=== PATIENT | male | born 1960 | race Caucasian/White ===

== ENCOUNTER 2025-01-27 09:37 | Outpatient (AMB) | payer MEDICARE, SELFPAY ==
--- NOTE | 2025-01-27 09:59 | MHC.AMNUTRGE ---
VS Expanded 01/27/25 10:03 02/02/25 10:24 Height 5 ft 8 in 5 ft 8 in Weight 189 lb 6.033 oz 188 lb 14.4 oz BMI 28.8 28.7 Intake Visit Reasons: Impaired glucose tolerance Medication List - Last Reconciled 02/02/[address], LDN apixaban 5 mg PO BID atorvastatin (Lipitor) 40 mg PO BEDTIME empagliflozin (Jardiance) 10 mg PO DAILY oqxoycbtfyn-iubwuqnyd-dahsgdsy 200-62.5-25 mcg (Trelegy Ellipta) 1 inh inhalation DAILY gabapentin 100 mg PO BEDTIME bk-pny-bptsb-hjyzd-iod-[id number] 200-175-250 mcg ([place] Multivitamin For Men) tabs PO risperidone 2 mg PO BID sertraline 100 mg PO DAILY Nutrition Presentation Details: Pt presents for MNT for Pre DM Pt presents with home health care provider Pt participated minimally in the nutrition conversation in this appt Per referral notes, Pt has a hx of depression with psychiatric admissions Health care reports Pt has 2 meals/day , having a protein shake as breakfast and the next meal may be a skull grinder with steak and cheese and peppers or home made meal mashed potato/chicken or beef an [employer] staff reports he snacks on sweets , Pt admits to sneaker bars Today will review choosing nutrient dense snacks reducing on total carbs FIZ-Kegskye-Gf.Jeor Equation Height: 5 ft 8 in Weight: 188 lb 14.4 oz Resting Metabolic Rate: 1620.68 Calculated Activity Level: Sedentary Calories Needed to Maintain Weight: 1944.82 Diagnosis Nutrition problem #1: food nutri know defi As related to (etiology) #1: diagnosis As evidenced by (sign/symptom) #1: knowledge deficit of diet Assessment & Plan Assessment & Plan (1) Impaired fasting glucose: Code(s): R73.01 - Impaired fasting glucose Category: Medical Plan: current wt: 85.9 kg (01/27 ) est kcal needs as per MSJ: 2000 est protein needs as per 1 g/kg BW: 90 est fluid needs as per 30 ml/kg BW: 2600 Recommended fiber > 12 g /day and gradually increase up to 25-28 g /day or as tolerated Nutrition topics discussed : Reviewed (R), Pt verbalized understanding (V) , not applicable (N/A) NA< 2300 mg/d R, : Healthy Plate Method Concept: R, V, N/A: Carbohydrates: food sources of carbohydrates, relationship of carbohydrates to blood glucose, fatty liver GI health. Recommended total amount of carbohydrates per meals and snack. Differences between simple carbohydrates and complex carbohydrates R, : Lean protein foods including vegan , vegetarian sources of protein. Benefits of protein (including but not limited to healing, nutritional value , benefits in weight loss, glucose control R, V, N/A: Fats : Source of fats, benefits of fats. Difference between saturated and unsaturated fats. Saturated fats and its contribution to inflammation R, V, N/A: Fiber: food sources and role of fiber in the diet (including but not limited to its role as a prebiotic, benefits in constipation, role in IBS , role in glucose control and cholesterol level) R, : Hydration: role of hydration and prevention of dehydration or over hydration. Foods and water content. R, V, N/A: Vitamins and Minerals in foods and supplements R, V, N/A: Interpreting food labels, including serving size, macronutrients, vitamins, minerals, allergens, ingredient list , % daily value Patient Instructions: Choose snacks with less sugar and with protein ([place] prot bar vs sneaker bar as example- see list of options to choose from) Have 2 meals a day as established and include a meal consisting of salad and at least 4 oz of lean protein ( see green/yellow/red education sheet for high fiber /protein meal options to choose from next visit : will discuss carbs in more detailed with Pt and health care provider Coding Level of Care Code Nutr Indiv Intake (25399) Diagnoses Impaired fasting glucose R73.01 Time Spent (min) 30
[2025-01-27 10:03] VITALS: BMI 28.8
--- OUTSIDE RECORDS SUMMARY | 2025-01-27 11:14 | XMS_ITS | Clinical Summary ---
Author Organization 175 [facility] Address [address] [place] [address] Phone Care Team Providers Care Operators Teacher Name Role Phone Italia Jerez MD Primary Care Prov ider Allergies Active Allergy Reactions Criticality Noted Date Comments Haloperidol Anaphylaxis High 07/11/2016 Topiramate 07/11/2016 Medications multivitamin (MULTIPLE VITAMINS ORAL) TAKE 1 TABLET BY MOUTH ONCE DAILY 4 Active hydrocortisone 1 % topical cream Apply topically to skin twice a day for 2 weeks for rash legs 4 Active gabapentin (NEURONTIN) 100 mg capsule Take 1 capsule (100 mg total) by mouth 2 (two) times a day. 2 Active hydrOXYzine HCL (ATARAX) 10 mg tablet Take 1 tablet (10 mg total) by mouth 1 (one) time each day. 1 Active risperiDONE (RisperDAL) 2 mg tablet Take 1 Tab by mouth 2 times daily. 1 Active sertraline (ZOLOFT) 100 mg tablet Take 2 tablets (200 mg total) by mouth 1 (one) time each day. Active benztropine (COGENTIN) 0.5 mg tablet Take 0.5 mg by mouth 2 times daily. Active Trelegy Ellipta 200-62.5-25 mcg inhaler INHALE 1 PUFF BY MOUTH INTO THE lungs ONCE DAILY 60 each 11 5 Active albuterol 2.5 mg /3 mL (0.083 %) nebulizer solutionIndication s:Emphysema, unspecified ([facility] V24, [facility] V28),Nicotine dependence, cigarettes, uncomplicated INHALE THE CONTENT OF 1 VIAL (3mls) VIA NEBULIZER EVERY 4 HOURS NEEDED FOR SHORTNESS OF BREATH OR FOR WHEEZING 300 mL 1 5 Active atorvastatin (LIPITOR) 40 mg tablet Take 1 tablet (40 mg total) by mouth 1 (one) time each day. 30 tablet 5 5 Active apixaban (Eliquis) 5 mg tablet Take 1 tablet (5 mg total) by mouth 2 (two) times a day. 60 tablet 5 5 04/23/20 25 Active bb-gvp-[id number]-K1-ly copen-lutein (Men 50 Plus Multivitamin) 016-14-913-300 mcg tablet Take 1 tablet by mouth 1 (one) time each day. 30 tablet 5 5 Active empagliflozin (JARDIANCE) 10 mg tabletIndications: HFrEF (heart failure with reduced ejection fraction) ([facility] V24, [facility] V28) Take 1 tablet (10 mg total) by mouth 1 (one) time each day in the morning. 60 tablet 2 5 Active CertaVite Senior tablet Take 1 tablet by mouth 1 (one) time each day. 5 Active Active Problems Problem Noted Date Diagnosed Date Coronary artery disease due to lipid rich plaque 10/25/2024 Assessment & Plan (11/01/2024 12:06 PM EDT): Patient with history of nonobstructive CAD. He continues on statin and Eliquis. He denies any chest discomfort. He has a history of COPD and dyspnea on exertion at baseline. His last LDL cholesterol was at 48 showing excellent control. I have reviewed with the patient the importance of a heart healthy lifestyle which includes eating a low-fat low-salt diet, getting regular exercise, maintaining a healthy weight, not smoking, and following up with routine medical care. Anticoagulated 10/25/2024 Claudication ([facility] V24) 09/08/2024 Assessment & Plan (09/08/2024 10:19 AM EDT): The patient has symptoms of claudication. His symptoms of claudication occur with only minimal activity. Will order lower extremity arterial duplex to rule out any significant PAD. Orders: Vascular US duplex lower extremity arteries bilateral with FRANCIS; Future HFrEF (heart failure with re duced ejection fraction) (CMS/HCC V24, CMS/HCC V28) 09/08/2024 Assessment & Plan (11/01/2024 12:06 PM EDT): Patient has a history of HFrEF, his most recent echocardiogram was completed in June 2024 showing an ejection fraction of 40 to 45% with mild global hypokinesis of the left ventricle. He underwent an angiogram which revealed nonobstructive CAD. We will further investigate causes of nonischemic cardiomyopathy with a cardiac MRI. As far as GDMT, will initiate an SGLT2 inhibitor today with Jardiance 10 mg daily. Patient was given samples and education. BMP in 1 week. With his soft blood pressure, unsure if he will be able to tolerate Entresto in the future. Will reevaluate in several weeks. He is euvolemic on exam. Orders: empagliflozin (JARDIANCE) 10 mg tablet; Take 1 tablet (10 mg total) by mouth 1 (one) time each day in the morning. Basic metabolic panel; Future MR Cardiac Morphology and Function wo and w Contrast; Future Assessment & Plan (09/08/2024 10:19 AM EDT): the patient has a history of heart failure with reduced ejection fraction. On a recent echocardiogram his LVEF was noted to be around 40%. He has global hypokinesis of the left ventricle more pronounced in the basal segments. There was no evidence of any significant valvular disease. The patient does have multiple risk factors for CAD including a history of smoking and hyperlipidemia. As such, I am concerned about the possibility of underlying coronary artery disease. The patient denies any symptoms of chest pain but he does refer symptoms of significant shortness of breath with minimal activity. Certainly, there could be a component of COPD to his symptoms of shortness of breath. During today's visit, I had an extensive conversation with the patient and his sister regarding his abnormal echocardiogram. Specifically, we discussed that his LV function is reduced. Also, we discussed the fact that we need to rule out the possibility of underlying CAD given his cardiomyopathy and risk factors for CAD. We discussed the possibility of a left heart catheterization. The patient and his sister are in agreement to proceed. Will schedule the patient for a left heart catheterization to rule out ischemic cardiomyopathy as a cause of his cardiomyopathy. On the other hand, we will order laboratory testing and will include a comprehensive metabolic panel, CBC, coagulation profile, and TSH level. Depending on the results, then we will start the patient on GDMT for his cardiomyopathy. Finally, if the left heart catheterization does not show any significant coronary artery disease as a cause of his cardiomyopathy, then we will proceed with further testing with a cardiac MRI. Other cardiomyopathies (CMS/HCC V24, CMS/HCC V28 ) 09/06/2024 Assessment & Plan (09/08/2024 10:19 AM EDT): the patient has a history of heart failure with reduced ejection fraction. On a recent echocardiogram his LVEF was noted to be around 40%. He has global hypokinesis of the left ventricle more pronounced in the basal segments. There was no evidence of any significant valvular disease. The patient does have multiple risk factors for CAD including a history of smoking and hyperlipidemia. As such, I am concerned about the possibility of underlying coronary artery disease. The patient denies any symptoms of chest pain but he does refer symptoms of significant shortness of breath with minimal activity. Certainly, there could be a component of COPD to his symptoms of shortness of breath. During today's visit, I had an extensive conversation with the patient and his sister regarding his abnormal echocardiogram. Specifically, we discussed that his LV function is reduced. Also, we discussed the fact that we need to rule out the possibility of underlying CAD given his cardiomyopathy and risk factors for CAD. We discussed the possibility of a left heart catheterization. The patient and his sister are in agreement to proceed. Will schedule the patient for a left heart catheterization to rule out ischemic cardiomyopathy as a cause of his cardiomyopathy. On the other hand, we will order laboratory testing and will include a comprehensive metabolic panel, CBC, coagulation profile, and TSH level. Depending on the results, then we will start the patient on GDMT for his cardiomyopathy. Finally, if the left heart catheterization does not show any significant coronary artery disease as a cause of his cardiomyopathy, then we will proceed with further testing with a cardiac MRI. Orders: Comprehensive metabolic panel; Future CBC and differential; Future Lipid panel with reflex to direct LDL; Future Thyroid stimulating hormone; Future Prothrombin time with INR; Future Syncope and collapse 09/06/2024 Assessment & Plan (11/01/2024 12:06 PM EDT): He has a history of syncopal episodes as outlined above. He has had no recent syncopal episodes or feelings of presyncope. He completed a 30-day monitor and pending it to review. He will be notified of the results once they are available. Assessment & Plan (09/08/2024 10:19 AM EDT): The patient has had 2 episodes of syncope. The episodes occurred while the patient was not eating or drinking enough during his stay. The last episode of syncope occurred 3 months ago. Since then, he has not had any further episodes of syncope. Blood pressures today in our office were noted to be appropriate. The patient recently underwent an echocardiogram that showed a mild LV systolic dysfunction. Given his underlying structural heart disease, we need to rule out the possibility of an arrhythmic component to his episodes of syncope. Therefore, we will schedule the patient for 30-day ambulatory environmental monitoring specialist. 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 He will continue on these therapies as directed. Assessment & Plan (09/08/2024 10:19 AM EDT): The patient has a history of a left lower extremity DVT with PE which was diagnosed in May 2018. He apparently was on anticoagulation therapy for several months and after that the anticoagulation therapy was discontinued. Then, the patient had another episode of DVT/pulmonary embolism in January 2020. Anticoagulation therapy was then restarted. The patient has not had any further episodes of DVT/PE on chronic anticoagulation therapy with Eliquis. The patient will be scheduled for a left heart catheterization which will require holding his Eliquis for 2 days prior to the left heart catheterization. Will review this with the patient's binding folder machine who is following the patient's pulmonary embolism and COPD. Impaired glucose tolerance 04/22/2023 Moderate COPD (chronic obstr uctive pulmonary disease) ([facility] V24, [facility] V28) 11/13/2016 Nicotine dependence, uncomplicated 11/13/2016 Pulmonary nodule 11/13/2016 Intellectual disability 09/04/2015 Mononeuropathy 09/04/2015 Alcohol abuse 06/06/2015 Depression 08/29/2014 Overview (02/25/2024): Therapist weekly:Belinda Munoz Clinician from [facility] inpatient psychiatric admits Impaired fasting glucose 08/29/2014 Mixed hyperlipidemia 08/29/2014 Overview (02/25/2024): ASCVD 12.9% 03/25. Started atorvastatin 40 mg. Assessment & Plan (09/08/2024 10:19 AM EDT): The patient has a history of hyperlipidemia. The patient is currently on atorvastatin 40 mg orally daily. We will order a new lipid panel to evaluate the patient's current lipid control and determine if any adjustment are needed in the lipid lowering therapy. PTSD (post-traumatic stress disorder) 08/29/2014 Tubular adenoma of colon 08/29/2014 Overview (02/25/2024): 2012 Resolved Problems Problem Noted Date Diagnosed Date Resolved Date School failure 08/29/2014 09/08/2024 Encounters Date Type Department Care Team Description 01/06/2025 Telephone [facility] Cardiology [facility] [address] [place] [address] Nancy Duvall NP 12/29/2024 9:15 AM EDT Office Visit Orthopedic Surgery - [place] [address] [place] [address] [address] [place] [address] Ariel Santos, DPM Ingrowing nail (Primary Dx); Dermatophytosis of nail; Dermatitis 12/14/2024 Telephone [facility] [address] [place] [address] Abhishek FidencioJOHNNIE brady 12/13/2024 1:05 PM EDT Lab Draw Station - [place] [address] [place] [address] HFrEF (heart failure with reduced ejection fraction) (CMS/HCC V24, CMS/HCC V28) 12/09/2024 2:10 PM EDT Office Visit [facility] Cardiology [facility] [address] [place] [id number] Nancy Duvall NP HFrEF (heart failure with reduced ejection fraction) (CMS/HCC V24, CMS/HCC V28) (Primary Dx) 12/02/2024 Telephone [facility] [address] [place] [address] Julio Kimble MD 12/01/2024 3:00 PM EDT Ancillary Procedure [facility] [address] [place] [address] Claudication ([facility]/HCC V24) 11/22/2024 Telephone Adult Medicine - [place] [address] [place] [address] Italia Jerez MD 11/15/2024 Telephone [facility] [address] [place] [address] Nancy Duvall NP 11/03/2024 Telephone Adult Medicine - [place] [address] [place] [address] Italia Jerez MD 11/01/2024 8:10 AM EDT Office Visit [facility] [address] [place] [address] Nancy Duvall NP HFrEF (heart failure with reduced ejection fraction) (CMS/HCC V24, CMS/HCC V28) (Primary Dx); Coronary artery disease due to lipid rich plaque; Pulmonary embolism, unspecified chronicity, unspecified pulmonary embolism type, unspecified whether acute cor pulmonale present (CMS/HCC V24, CMS/HCC V28); Syncope and collapse from Last 3 Months Immunizations Name Administration Dates Next Due Influenza Quadravalent, MDCK , 0.5ml, preservative free (Flucelvax) 6mo and older 01/12/2023,03/26/2022,03/20/2021,02/15 Influenza Quadrivalent, 0.5m l, preservative free (Fluarix; FluLaval; Fluzone) ages 6mo and older (Afluria) 3yo and older 05/17/2015 Influenza trivalent, 0.5mL, preservative free (Fluarix; FluLaval; Fluzone) ages 6mo and older (Afluria) 3 years and older 03/21/2024,05/14/2018,02/04/2017,03/01 Influenza trivalent, with pr eservative (Fluzone; Afluria) 6mo and older 05/14/2018,03/01/2016 Influenza, Unspecified 02/04/2017,05/17/2015 Moderna SARS-CoV-2 COVID-19, mRNA, LNP-S, preservative free 03/06/2021 Pneumococcal polysaccharide 23 valent (Pneumovax 23) 2yo and older 10/09/2010 RSV, bivalent, protein subun it RSVpreF, 0.5mL, Preservative Free (Arexvy) 60yo and older 01/12/2023 Tdap Tetanus diptheria acell ular pertussis (Boostrix; Adacel) 7yo and older 02/22/2020,10/06/2009 Surgical History Surgery Date Site/Laterality Comments CATARACT EXTRACTION 05/05/2012 Bilateral PROCEDURE: HISTORICAL CATARACT REMOVAL COLONOSCOPY 05/05/2012 PROCEDURE: HISTORICAL COLONOSCOPY Medical History Medical History Date Comments Depression 08/29/2014 DX:Depression Impaired fasting glucose 08/29/2014 DX:Impa ired fasting glucose PTSD (post-traumatic stress disorder) 08/29/2014 DX:PTSD (post-traumatic stress disorder) COPD (chronic obstructive pu lmonary disease) ([facility] [place], [facility] [place]) 08/29/2014 DX:COPD (chronic o bstructive pulmonary disease) ([facility]) Tubular adenoma of colon 08/29/2014 DX:Tubu lar adenoma of colon; COMMENT: 2012 School failure 08/29/2014 DX:School failur e Deep vein thrombosis (DVT) o f proximal vein of both lower extremities (CMS/HCC V24, CMS/HCC V28) 05/26/2018 DX:Deep vein thrombosis (DVT ) of proximal vein of both lower extremities ([facility]); COMMENT: left Other pulmonary embolism wit hout acute cor pulmonale (CMS/HCC V24, CMS/HCC V28) 06/10/2018 DX:Other pulmonary embolism without acute cor pulmonale (HCC) COVID-19 virus infection 04/30/2021 DX:COVI D-19 virus infection; COMMENT: Tested + 04/30/2021 sore throat and cough Family History Medical History Relation Name Comments No Known Problems Brother No Known Problems Father COPD Mother No Known Problems Sister 1 No Known Problems Sister 2 Blindness Neg Hx Cataracts Neg Hx Glaucoma Neg Hx Macular degeneration Neg Hx Strabismus Neg Hx Relation Name Status Comments Brother Alive Father Maternal Grandfather Maternal Grandmother Mother Paternal Grandfather Paternal Grandmother Sister 1 Alive Sister 2 Alive Social History Tobacco Use Types Packs/Day Years Used Date Smoking Tobacco: Every Day Cigarettes Smokeless Tobacco: Never Tobacco Cessation:Ready to Q uit: Not Asked; Counseling Given: Not Answered Comments:Smoking 1 pk daily Alcohol Use Standard Drinks/Week Comments Not Currently 0 (1 standard drink = 0.6 oz pur e alcohol) Sex and Gender Information Value Date Recorded Sex Assigned at Not on file Legal Sex Male 10:17 AM EST Gender Identity Not on file Sexual Orientation Not on file Obstetrics History Last Filed Vital Signs Vital Sign Reading Time Taken Comments Blood Pressure 102/66 12/09/2024 2:23 PM EDT Pulse 86 12/09/2024 2:23 PM EDT Temperature 36.7 C (98 F) 10/25/2024 10:31 AM EDT Respiratory Rate 20 08/30/2024 9:04 AM EDT Oxygen Saturation 96% 12/09/2024 2:23 PM EDT Inhaled Oxygen Concentration - - Weight 87.5 kg (193 lb) 12/09/2024 2:23 PM EDT Height 172.7 cm (5' 8 ) 11/01/2024 8:13 AM EDT Body Mass Index 29.35 11/01/2024 8:13 AM EDT Plan of Treatment Upcoming Encounters Date Type Department Care Team (Late st Contact Info) Description 02/01/2025 11:30 AM EDT Office Visit Adult Medicine - [place] [address] [place] [address] Yordan Grant PA [address] [place] [address] 02/21/2025 3:45 PM EDT Appointment [facility] CT Scan [address] [place] [phone] 03/01/2025 8:45 AM EDT Office Visit Pulmonology - [place] [facility] [address] [place] [phone] Isreal Delatorre MD 175 [facility] [address] [place] [address] 03/29/2025 8:30 AM EST Office Visit Orthopedic Surgery - [place] [address] [facility] [address] [place] [phone] Ariel Santos, DPM [address] [phone] Health Maintenance Due Date Last Done Comments Hepatitis A Vaccines (1 of 2 - Risk 2-dose series) 10/30/1978 Zoster Vaccines (1 of 2) 10/30/2009 Pneumococcal Vaccine: 50+ Years (2 of 2 - PCV) 10/10/2011 10/09/2010 Abdominal Aortic Aneurysm (AAA) Screen 04/13/2022 Colorectal Cancer Screening: Stool Based Tests (FOBT/FIT) 04/13/2022 Medicare Annual Wellness Visit 04/13/2022 Social Influencers of Health Screening 04/13/2022 Depression Screening 05/05/2024 Falls Risk Assessment 10/30/2024 COVID-19 Vaccine ( season) 2025 03/21/2024, 04/08/2022, 03/06/2021, Additional history exists Influenza Vaccine (#1) 2025 4, 01/12/2023, 03/26/2022, Additional history exists Lung Cancer Screening (Low Dose CT) 02/22/2025 02/23/2024, 02/21/2024, 02/25/2023, Additional history exists Hypertension/CHF/CAD Annual BMP Blood Test 12/13/2025 12/13/2024, 09/09/2024, 02/17/2024, Additional history exists Cholesterol Screening (Lipid Panel) 09/09/2029 09/09/2024, 04/22/2023 DTaP,Tdap,and Td Vaccines (3 - Td or Tdap) 02/21/2030 02/22/2020, 10/06/2009 Hepatitis C Screening Completed 09/15/2014 Colorectal Cancer Screening: Colonoscopy Discontinued 07/10/2021 RSV Immunization Adult Patients Completed 01/12/2023 HIB Vaccines Aged Out No longer eligi ble based on patient's age to complete this topic HPV Vaccines Aged Out No longer eligi ble based on patient's age to complete this topic Hepatitis B Vaccines Aged Out No long er eligible based on patient's age to complete this topic IPV Vaccines Aged Out No longer eligi ble based on patient's age to complete this topic MMR Vaccines Aged Out No longer eligi ble based on patient's age to complete this topic Meningococcal ACWY Vaccine Aged Out N o longer eligible based on patient's age to complete this topic Meningococcal B Vaccine Aged Out No l onger eligible based on patient's age to complete this topic RSV Immunization Patients Under 20 months Aged Out No longer eligible based on patient's age to complete this topic Varicella Vaccines Aged Out No longer eligible based on patient's age to complete this topic Procedures Procedure Name Priority Date/Time Associated Diagnosis Comments BASIC METABOLIC PANEL Routine 12/13/2024 1:04 PM EDT HFrEF (heart failure with reduced ejection fraction) (CMS/HCC V24, CMS/HCC V28) VAS US DUPLEX LOWER EXT ARTERIES BILAT WITH FRANCIS Routine 12/01/2024 3:42 PM EDT Claudication (CMS/HCC V24) LIPID PANEL WITH REFLEX TO DIRECT LDL Routine 09/09/2024 12:20 PM EDT Other cardiomyopathies (CMS/HCC V24, CMS/HCC V28) CT LUNG SCREENING LOW DOSE Routine 02/23/2024 11:35 AM EDT Encounter for screening for malignant neoplasm of respiratory organs COLONOSCOPY Routine 07/10/2021 HEPATITIS C SCREENING Routine 09/15/2014 from Last 3 Months or Most Recently Relevant to Health Maintenance Results * Basic metabolic panel (12/13/2024 1:04 PM EDT) [facility] Sodium 138 133 - 145 mmol/L LAB CHEMISTRY METHOD 12/13/2024 3:22 PM [facility] Potassium 4.3 3.5 - 5.5 mmol/L LAB CHEMISTRY METHOD 12/13/2024 3:22 PM [facility] Chloride 107 96 - 110 mmol/L LAB CHEMISTRY METHOD 12/13/2024 3:22 PM [facility] CO2 25 21 - 32 mmol/L LAB CHEMISTRY METHOD 12/13/2024 3:22 PM [facility] Anion Gap 6 3 - 11 LAB CHEMISTRY METHOD 12/13/2024 3:22 PM [facility] Glucose 79 70 - 100 mg/dL LAB CHEMISTRY METHOD 12/13/2024 3:22 PM [facility] BUN 7 5 - 25 mg/dL LAB CHEMISTRY METHOD 12/13/2024 3:22 PM [facility] Creatinine 0.79 0.70 - 1.30 mg/dL LAB CHEMISTRY METHOD 12/13/2024 3:22 PM [facility] eGFR 99 >=60 mL/min/1. 73m2 LAB CHEMISTRY METHOD 12/13/2024 3:22 PM [facility] Comment:Calculation based on the Chronic Kidney Disease Epidemiology Collaboration (CKD-EPI) equation refit without adjustment for race. BUN/Creatinine Ratio 8.9 LAB CHEMISTRY METHOD 12/13/2024 3:22 PM EDT [facility] Calcium 9.4 8.5 - 10.5 mg/dL LAB CHEMISTRY METHOD 12/13/2024 3:22 PM EDT [facility] Blood Venous blood specimen / Unknown Venipuncture / Unknown 12/13/2024 1:04 PM EDT 12/13/2024 1:04 PM EDT us Nancy Duvall STORE MANAGER LAB BLOOD ORDERABLES Final Res ult [facility] ([facility]) [facility] [address] [place] [address], [place] [phone] * Vascular US duplex lower extremity arteries bilateral with FRANCIS (12/01/2024 3:42 PM EDT) Left Dist External Iliac PSV 146 cm/s CV [facility]AS LAB Left Prox External Iliac PSV 109 cm/s CV VAS LAB Left AT dist sys PSV 43 cm/s CV VAS LAB Left AT mid sys PSV 50 cm/s CV VAS LAB Left AT prox sys PSV 51 cm/s CV VAS LAB Left CLAY MACHINE OPERATOR prox sys PSV 85 cm/s CV VAS LAB Left mid peroneal sys PSV 45 cm/s CV VAS LAB Left popliteal dist sys PSV 61 cm/s CV VAS LAB Left popliteal prox sys PSV 62 cm/s CV VAS LAB Left PT dist sys PSV 78 cm/s CV VAS LAB Left PT mid sys PSV 84 cm/s CV VAS LAB Left PT prox sys PSV 52 cm/s CV VAS LAB Left super femoral dist sys PSV 87 cm/s CV VAS LAB Left super femoral mid sys PSV 117 cm/s CV VAS LAB Left super femoral prox sys PSV 116 cm/s CV VAS LAB Right Dist External Iliac PSV 119 cm/s CV VAS LAB Right Prox External Iliac PSV 108 cm/s CV VAS LAB Right AT dist sys PSV 63 cm/s CV VAS LAB Right AT mid sys PSV 86 cm/s CV VAS LAB Right AT prox sys PSV 59 cm/s CV VAS LAB Right CLAY MACHINE OPERATOR prox sys PSV 89 cm/s CV VAS LAB Right mid peroneal sys PSV 37 cm/s CV VAS LAB Right popliteal dist sys PSV 72 cm/s CV VAS LAB Right popliteal prox sys PSV 53 cm/s CV VAS LAB Right PT dist sys PSV 63 cm/s CV VAS LAB Right PT mid sys PSV 63 cm/s CV VAS LAB Right PT prox sys PSV 76 cm/s CV VAS LAB Right super femoral dist sys PSV 86 cm/s CV VAS LAB Right super femoral mid sys PSV 122 cm/s CV VAS LAB Right super femoral prox sys PSV 105 cm/s CV VAS LAB Right profunda sys PSV 86 cm/s CV VAS LAB Left profunda sys PSV 114 cm/s CV VAS LAB Right arm BP 110 mmHg CV VAS LAB Left arm BP 100 mmHg [facility] Right posterior tibial 141 mmHg [facility] Right Dorsalis Pedis 145 mmHg [facility] Right FRANCIS 1.32 [facility] Left posterior tibial 141 mmHg [facility] Left Dorsalis Pedis 125 mmHg [facility] Left FRANCIS 1.28 [facility] Anatomical Region Laterality Modality Vascular, Abdomen Ultrasound Narrative 12/29/2024 6:13 PM EDT Right le. Normal ankle-brachial index (1.32). 2. Diffuse atherosclerosis was noted in the right lower extremity arterial system. 3. No significant stenosis noted in the right lower extremity arterial system. Left le. Normal ankle-brachial index (1.28). 2. Diffuse atherosclerosis was noted in the left lower extremity arterial system. 3. No significant stenosis noted in the left lower extremity arterial system. Right Lower Arterial Duplex The distal external iliac artery has triphasic flow. The common femoral artery has triphasic flow. The profunda femoris artery has triphasic flow. The superficial femoral artery has triphasic flow. The popliteal artery has triphasic flow. The anterior tibial artery has triphasic flow. The posterior tibial artery has triphasic flow. The mid peroneal artery has triphasic flow. Left Lower Arterial Duplex The distal external iliac artery has triphasic flow. The common femoral artery has triphasic flow. The profunda femoris artery has triphasic flow. The superficial femoral artery has triphasic flow. The popliteal artery has triphasic flow. The anterior tibial artery has triphasic flow. The posterior tibial artery has triphasic flow. The mid peroneal artery has triphasic flow. Slicing Machine Feeder Details A wallace scale, color and doppler analysis ultrasound was performed. During the study longitudinal and transverse views were obtained. Continuous wave doppler, pulsed wave doppler and pulsed volume recording (PVR) was performed. Julio Kimble MD CV VASCULAR PROCEDURES Final Result * (ABNORMAL) Lipid panel with reflex to direct LDL (09/09/2024 12:20 PM EDT) [facility] Signature Cholesterol 130 0 - 200 mg/dL LAB CHEMISTRY METHOD 09/09/2024 3:22 PM EDT [facility] Triglycerides 175(H) 0 - 150 mg/dL LAB CHEMISTRY METHOD 09/09/2024 3:22 PM EDT [facility] HDL 47 >=40 mg/dL LAB CHEMISTRY METHOD 09/09/2024 3:22 PM EDT [facility] LDL Calculated 48 0 - 100 mg/dL LAB CHEMISTRY METHOD 09/09/2024 3:22 PM EDT [facility] VLDL Cholesterol Capo 35 mg/dL LAB CHEMISTRY METHOD 09/09/2024 3:22 PM EDT [facility] Non HDL Chol. (LDL+VLDL) 83 <145 mg/dL LAB CHEMISTRY METHOD 09/09/2024 3:22 PM EDT [facility] Chol/HDL Ratio 2.8 0.0 - 4.4 LAB CHEMISTRY METHOD 09/09/2024 3:22 PM T [facility] Blood Venous blood specimen / Unknown Venipuncture / Unknown 09/09/2024 12:20 PM EDT 09/09/2024 12:20 PM EDT Julio Kimble MD LAB BLOOD ORDERABLES F inal Result [facility] [address] [place] [address], [place] [phone] * CT LUNG SCREENING LOW DOSE (02/23/2024 11:35 AM EDT) Anatomical Region Laterality Modality Computed Tomogra phy 02/21/2024 9:55 AM EDT Narrative 02/23/2024 11:[address] [facility] Diagnostic Imaging Department [address] [place] [id number] Patient: JAGDISH ROBB /Age/Sex: 1960 - 63 - M Unit#: [id number] Location/Status: SPDICATLS/REG CLI Mnemonic/Ordering Site: [facility] Ordering Physician: BELKYS COBIAN MD CT Lung Screening Low Dose - 02/21/24 - 1006 Report Status:Signed PROCEDURE: Chest CT INDICATION: Lung cancer screening, current smoker, 47 pack year smoking history TECHNIQUE: Chest CT without contrast. Multi planar reformats were created and interpreted. The examination was performed utilizing dose reduction techniques. Total DLP 114 COMPARISON: 02/15/2023 FINDINGS: LUNGS/PLEURA: Central airways are patent. Emphysema with chronic bronchitis and regions of mucous plugging. 4 mm nodule in the right upper lobe is stable compared to prior. Smaller nodules along the right minor fissure are stable compared to prior. Right lower lobe calcified granuloma is unchanged. No new or suspicious pulmonary nodules. No pleural effusion or pneumothorax. MEDIASTINUM: Thyroid gland is unremarkable. No mediastinal or hilar lymphadenopathy. Cardiac chambers are normal in size. No pericardial effusion. Moderate coronary artery calcifications. Esophagus is normal. CHEST WALL: No axillary lymphadenopathy or superficial hematoma. UPPER ABDOMEN:Hepatic steatosis. Porcelain gallbladder BONES: No acute fracture. Old healed rib fracture deformities bilaterally. Scattered degenerative changes seen throughout the bones. IMPRESSION: No new or suspicious pulmonary nodules. Lung RADS 2-benign. Recommend continued screening with low-dose chest CT in 12 months. Dictating Physician: MARIN WEBSTER MD Electronically Signed by: MARIN WEBSTER MD Dic Date/Time: 02/23/24 1040 Sign date/Time: 02/23/24 1135 Procedure Note Marin Webster MD - 03/02/2024 [facility] Diagnostic Imaging Department [address] [place] [address] Patient: JAGDISH ROBB D.O.B./Age/Sex: 1960 - 63 - M Unit#: [id number] Location/Status: [facility] Mnemonic/Ordering Site: [facility] Ordering Physician: BELKYS COBIAN MD CT Lung Screening Low Dose - 02/21/24 - 1006 Report Status:Signed PROCEDURE: Chest CT INDICATION: Lung cancer screening, current smoker, 47 pack year smokinghistory TECHNIQUE: Chest CT without contrast. Multi planar reformats were createdand interpreted. The examination was performed utilizing dose reductiontechniques. Total DLP 114 COMPARISON: 02/15/2023 FINDINGS: LUNGS/PLEURA: Central airways are patent. Emphysema with chronicbronchitis and regions of mucous plugging. 4 mm nodule in the right upper lobe isstable compared to prior. Smaller nodules along the right minor fissure arestable compared to prior. Right lower lobe calcified granuloma is unchanged. Nonew or suspicious pulmonary nodules. No pleural effusion or pneumothorax. MEDIASTINUM: Thyroid gland is unremarkable. No mediastinal or hilar lymphadenopathy. Cardiac chambers are normal in size. No pericardialeffusion. Moderate coronary artery calcifications. Esophagus is normal. CHEST WALL: No axillary lymphadenopathy or superficial hematoma. UPPER ABDOMEN:Hepatic steatosis. Porcelain gallbladder BONES: No acute fracture. Old healed rib fracture deformitiesbilaterally. Scattered degenerative changes seen throughout the bones. IMPRESSION: No new or suspicious pulmonary nodules. Lung RADS 2-benign. Recommend continued screening with low-dose chest CT in 12 months. Dictating Physician: MARIN WEBSTER MD Electronically Signed by: MARIN WEBSTER MD Dic Date/Time: 02/23/24 1040 Sign date/Time: 02/23/24 1138 Belkys Cobian MD IMG CT PROCEDURES Final Result * Colonoscopy (07/10/2021) Pathologist [facility] Colonoscopy Normal, Abstracted Anatomical Region Laterality Modality Other Historical Provider HEALTH MAINTENANCE Final Result * Hepatitis C Screening (09/15/2014) [facility] Hepatitis C Screening Abstracted Historical Provider HEALTH MAINTENANCE Final Result from Last 3 Months or Most Recently Relevant to Health Maintenance Insurance [facility] MEDICARE Member Subscriber Plan / Payer (Ef fective 2022-Present) Name:JAGDISH ROBB Relation to Subscriber:Self Name:Jagdish Robb Payer ID:[id number] Group ID:[id number] Type:Not on file Address: [place] [address] [address] [id number] Care Teams Operators Teacher Relationship Specialty Start Date End Date Italia Jerez MD [address] [place] [id number] PCP - General Internal Medicine 08/16/14
[2025-02-02 10:24] VITALS: BMI 28.7
== END 2025-01-27 10:00 | disposition home or self-care (01) ==
LOC: HO.ENCR 09:37
PROVIDERS: PCP Internal Medicine; Visit Provider Dietitian, Registered
DX: R73.01 Impaired fasting glucose (principal)

== ENCOUNTER → 2025-01-27 09:37 | Outpatient (BNVA) | payer MEDICARE, SELFPAY | PROVIDERS: PCP Internal Medicine; Visit Provider Dietitian, Registered | DX: R73.01 Impaired fasting glucose (principal) | CPT/HCPCS: 97802 ==